=== PATIENT | female | born 1975 | race Caucasian/White ===

== ENCOUNTER 2017-07-02 20:47 | Emergency (ER) | payer BC ==
[~2017-07-02] VITALS: Ht 170.2 cm; Wt 61.9 kg
[2017-07-02 20:56] VITALS: BP 130/82
[2017-07-02 21:54] LABS: BASOPHIL % 0.7 % (0-2); PLATELET COUNT 299 x10^3mcL (130-400); RED CELL DISTRIBUTION WIDTH 13.6 % (11.5-14.5)
== END 2017-07-02 23:35 | disposition home or self-care (01) ==
LOC: ED 20:47
PROVIDERS: Emergency Medicine
DX: D25.9 Leiomyoma of uterus, unspecified (principal); N93.8 Other specified abnormal uterine and vaginal bleeding; Z88.0 Allergy status to penicillin; Z88.2 Allergy status to sulfonamides
CPT/HCPCS: 36415

== ENCOUNTER 2017-11-07 14:48 | Emergency (ER) | payer SELFPAY ==
[~2017-11-07] VITALS: Ht 162.6 cm; Wt 54.4 kg
[2017-11-07 15:02] VITALS: Ht 162.6 cm; Wt 54.4 kg
[2017-11-07 16:26] VITALS: BP 108/53
== END 2017-11-07 16:26 | disposition home or self-care (01) ==
LOC: ED 14:48
DX: S61.051A Open bite of right thumb without damage to nail, initial encounter (principal); Z88.0 Allergy status to penicillin; Z88.2 Allergy status to sulfonamides; W55.01XA Bitten by cat, initial encounter; Y93.89 Activity, other specified; Y92.89 Other specified places as the place of occurrence of the external cause; Y99.8 Other external cause status
CPT/HCPCS: 90715

== ENCOUNTER 2018-02-26 10:41 | Emergency (ER) | payer BC ==
[~2018-02-26] VITALS: Ht 157.5 cm; Wt 57.1 kg
[2018-02-26 11:06] VITALS: BP 140/76; Ht 157.5 cm; Wt 57.1 kg
== END 2018-02-26 12:22 | disposition home or self-care (01) ==
LOC: ED 10:41
DX: S81.832A Puncture wound without foreign body, left lower leg, initial encounter (principal); Z88.0 Allergy status to penicillin; Z88.2 Allergy status to sulfonamides; W54.0XXA Bitten by dog, initial encounter; Y93.89 Activity, other specified; Y92.89 Other specified places as the place of occurrence of the external cause; Y99.8 Other external cause status